=== PATIENT | female | born 1990 | race Caucasian/White ===

== ENCOUNTER 2024-12-22 23:34 | Emergency (ER) | payer BC ==
[~2024-12-22] VITALS: Ht 154.9 cm; Wt 49.9 kg
[2024-12-23] MEDS ORDERED: SODIUM CHLORIDE 0.9% 500 ML IV ONE (00:10)
[2024-12-23 00:30] LABS: BASO # 0.1 10*3/uL (0.0-0.1); BASO % 0.4 % (0.0-1.0); EOS % 0.1 % (1.0-4.0); MEAN CELL VOLUME 92.6 fl (81.0-99.0); MEAN CORPUSCULAR HGB 31.6 pg (27.0-31.0); MEAN CORPUSCULAR HGB CONC 34.1 g/dl (33.0-37.0); MEAN PLATELET VOLUME 9.9 fl (9.6-12.3); MONO # 0.5 10*3/uL (0.1-1.0); MONO % 3.9 % (3.0-9.0); NEUT # 10.3 10*3/uL (2.3-7.9); NEUT % 84.1 % (47.0-73.0); PLATELET COUNT AUTOMATED 287 10*3/uL (130-400); RED BLOOD COUNT 4.21 10*6/uL (4.10-5.10); RED CELL DISTRI WIDTH 11.8 % (0-14.5); WHITE BLOOD COUNT 12.2 10*3/uL (4.8-10.8)
[2024-12-23 00:34] LABS: BILIRUBIN Negative (Negative); BLOOD Negative (Negative); CLARITY Clear (Clear); COLOR Yellow (Yellow); GLUCOSE Negative (Negative); KETONE Negative (Negative); LEUKO ESTERASE Negative (Negative); NITRITE Negative (Negative); PH 6.5 (4.5-8.0); SPECIFIC GRAVITY <= 1.005 (1.001-1.030); UROBILINOGEN 0.2 E.U./dl (0.0-1.0)
[2024-12-23 00:43] LABS: EPITHELIAL CELLS 0-2; MUCOUS TRACE
[2024-12-23 00:51] LABS: ALKALINE PHOSPHATASE 53 U/L (46-116); BUN 12 mg/dl (9-23); CHLORIDE 103 mmol/L (98-107); CPK 105 U/L (34-171); LIPASE 44 U/L (12-53); POTASSIUM 3.6 mmol/L (3.4-5.1); SGPT/ALT 11 U/L (5-49); TOTAL PROTEIN 7.5 gm/dL (6.0-8.0)
[2024-12-23] MEDS ORDERED: IOHEXOL 350 MG/ML 100 ML VIAL IV ONE ×2 (01:20→01:39)
[2024-12-23] MEDS ORDERED: SODIUM CHLORIDE 0.9% 100 ML BAG IV ONE (01:20)
[2024-12-23] MEDS ORDERED: SODIUM CHLORIDE 0.9% 100 ML IV ONE (01:39)
== END 2024-12-23 03:59 | disposition home or self-care (01) ==
LOC: ED 23:34
PROVIDERS: Emergency Medicine
DX: R55 Syncope and collapse (principal); H53.8 Other visual disturbances; R19.7 Diarrhea, unspecified; F41.9 Anxiety disorder, unspecified